=== PATIENT | male | born 1990 | race Two or more races ===

== ENCOUNTER 2016-11-17 09:10 | Emergency (ER) | payer OTHER ==
--- NOTE | 2016-11-17 10:32 | RAD ---
EXAMINATION:SHOULDER-LEFT 2 OR MORE VIEWS Clinical indication:Left shoulder pain. No known injury. Comparisons:None Findings: No fracture is identified. The glenohumeral joint is maintained. The acromioclavicular joint is unremarkable. The adjacent soft tissues are unremarkable. IMPRESSION: Normal radiographic evaluation of the left shoulder.
[2016-11-17] MEDS ORDERED: IBUPROFEN 600 MG TABLET ONE (13:39)
== END 2016-11-17 13:53 | disposition home or self-care (01) ==
LOC: ED 09:10
DX: M25.512 Pain in left shoulder (principal); J45.909 Unspecified asthma, uncomplicated
CPT/HCPCS: 73030; 99283 ×2; A9270